=== PATIENT | male | born 1940 | race Caucasian/White ===

== ENCOUNTER 2021-04-03 18:49 | Emergency (ER) | payer MEDICARE ==
[~2021-04-03] VITALS: Ht 177.8 cm; Wt 81.8 kg
[2021-04-03 18:56] VITALS: TEMP 98
[2021-04-03 19:58] LABS: BASO % 0.4 % (0.0-2.0); EOS # 0.3 (0.0-0.7); EOS % 2.6 % (0-4.0); GRAN # 5.3 (1.4-6.5); GRAN % 54.5 % (42.2-75.2); HEMATOCRIT 42.4 % (42.0-52.0); HEMOGLOBIN 13.7 g/dl (13.5-18.0); MEAN CELL VOLUME 89 fl (80.0-100.0); MEAN CORPUSCULAR HEMOGLOBIN 29 pg (27.0-31.0); MEAN CORPUSCULAR HGB CONC 32 g/dl (33.0-37.0); MEAN PLATELET VOLUME 10.5 fl (7.4-10.4); MONO # 1.1 (0.1-0.6); MONO % 11.2 % (1.7-9.3); PLATELET COUNT 298 K/mm3 (130-400); RED BLOOD COUNT 4.78 M/mm3 (4.20-5.60); REDCELL DISTRIBUTION WIDTH-CV 15.3 % (11.5-14.5)
[2021-04-03 20:03] LABS: PROTHROMBIN TIME 11.3 SECONDS (9.7-12.8)
[2021-04-03 20:05] LABS: PARTIAL THROMBOPLASTIN TIME 36.7 SECONDS (26.0-37.0)
[2021-04-03 20:17] LABS: MAGNESIUM 2.3 mg/dL (1.6-2.3)
[2021-04-03 20:26] LABS: TROPONIN-I < 0.012 ng/mL (0.000-0.035)
[2021-04-03 21:01] LABS: COLLECTION METHOD CLEAN CATCH
[2021-04-03] MEDS ORDERED: ASPIRIN 81M81 MG/TA2 PO (21:05)
[2021-04-03] MEDS ORDERED: NORVASC 5MG5 MG/TAB PO (21:06)
[2021-04-03] MEDS ORDERED: TENORMIN100 MG PO (21:06)
[2021-04-03] MEDS ORDERED: PROAIR HFA0.09 MG/AC IH (21:06)
[2021-04-03] MEDS ORDERED: VASOTEC 10M10 MG/TAB PO (21:07)
[2021-04-03] MEDS ORDERED: LIPITOR 40MG TA40 MG PO (21:07)
[2021-04-03 21:08] LABS: PH 7 (5-8); SQUAMOUS EPITHELIAL 0-2 /hpf; URINE APPEARANCE Clear; URINE BACTERIA None Seen /hpf; URINE BILIRUBIN Negative (NEGATIVE); URINE BLOOD 1+ (NEGATIVE); URINE COLOR Colorless; URINE GLUCOSE Negative (NEGATIVE); URINE KETONE Negative (NEGATIVE); URINE LEUKOCYTE ESTERASE Trace (NEGATIVE); URINE NITRATE Negative (NEGATIVE); URINE PROTEIN(semi-quant) Negative (NEGATIVE); URINE RBC 0-2 /hpf; URINE UROBILINOGEN Negative (NEGATIVE)
[2021-04-03] MEDS ORDERED: GLUCOPHAGE1000 MG PO (21:08)
[2021-04-03] MEDS ORDERED: RESTASIS MULTI5.5 ML OP (21:08)
[2021-04-03] MEDS ORDERED: TRAVATAN Z 2.52.5 ML OU (21:08)
[2021-04-03 21:09] LABS: ALBUMIN 3.9 gm/dL (3.5-5.0); BILIRUBIN,TOTAL 0.4 mg/dL (0.0-1.0); CALCIUM 8.8 mg/dL (8.4-10.2); CREATININE, serum 1.1 (0.66-1.25); POTASSIUM 4.1 mmol/L (3.4-5.0); TOTAL PROTEIN 7.3 gm/dL (6.4-8.2)
[2021-04-03 23:21] VITALS: BP 143/73; PULSE 66
== END 2021-04-03 23:21 | disposition home or self-care (01) ==
LOC: COL.ER 18:49
PROVIDERS: Emergency Medicine
DX: R42 Dizziness and giddiness (principal); R25.2 Cramp and spasm; R06.02 Shortness of breath; R53.1 Weakness; I25.10 Atherosclerotic heart disease of native coronary artery without angina pectoris; I10 Essential (primary) hypertension; E78.5 Hyperlipidemia, unspecified; F17.210 Nicotine dependence, cigarettes, uncomplicated; Z79.82 Long term (current) use of aspirin; Z79.899 Other long term (current) drug therapy
CPT/HCPCS: J2405; J7030